=== PATIENT | female | born 1970 | race Caucasian/White ===

== ENCOUNTER 2016-09-03 10:29 | Day surgery (SDC) | payer OTHER ==
[~2016-09-03] VITALS: Ht 167.6 cm; Wt 75.6 kg
[~2016-09-03 10:29] MED LIST: MULTI-VITAMIN1 EAC4 PO
[2016-09-03 10:56] VITALS: BP 136/91
[2016-09-03 16:00] VITALS: BP 125/86
[2016-09-03 19:19] VITALS: BP 123/74
[2016-09-03 23:32] VITALS: BP 110/69
[2016-09-04 03:27] VITALS: BP 121/73
[2016-09-04 07:40] VITALS: BP 112/65
[2016-09-04] MEDS ORDERED: ULTRACET1 TABLET PO (12:27)
[2016-09-04] MEDS ORDERED: MOTRIN400 MG PO (12:28)
== END 2016-09-04 13:50 | disposition home or self-care (01) ==
LOC: SDC 10:29 → 2SOUTH 11:07 → SDC 11:08 → EDSTATUS 11:08 → ENRESERV 14:55 → 2EASTP 15:07 → 2SOUTH 15:07 → ENRESERV 15:46 → 2EASTP 16:01 → SDC 16:46 → 2EASTP 09-04 13:50
DX: N81.10 Cystocele, unspecified (principal); N39.3 Stress incontinence (female) (male); F41.9 Anxiety disorder, unspecified; Z82.49 Family history of ischemic heart disease and other diseases of the circulatory system; Z83.3 Family history of diabetes mellitus
CPT/HCPCS: C1771; G0378; J0131; J0330; J0690; J1100; J1170; J1885; J2250; J2405; J2765; J7120